=== PATIENT | male | born 1990 | race Hispanic/Latino ===

== ENCOUNTER 2021-01-30 18:14 | Emergency (ER) | payer SELFPAY ==
[2021-01-30] MEDS ORDERED: LIDOCAINE (2%) 20 MG/1 ML VIAL 20 ML MDV INFILTRATI STA (20:14)
[2021-01-30] MEDS ORDERED: SODIUM CHLORIDE 0.9% IRR 500 ML BOTTLE IR ONE (20:15)
[2021-01-30 20:17] VITALS: BP 151/96
--- NOTE | 2021-01-30 20:17 | Emergency Department Report ---
ED Upper Extremity Inj HPI - General Stated Complaint: CUT LT HAND POSSIBLY BROKEN Time Seen by Provider: 01/30/21 19:57 Source: patient - History of Present Illness Complaint: Injury to:: left, hand -: hour(s) (3) Other Extremity Injury: Hand: Left Other Injuries: none Handedness: right Place: work Severity scale (0 -10): 7 Improves With: immobilization Worsens With: immobilization, movement of extremity Context: crush (crushed by engine that fellonto hand), injury Associated Symptoms: denies: weakness, numbness, neck pain, nausea/vomiting, heard/felt popping sensat - Related Data Previous Rx's Medication Instructions Recorded Last Taken Type Acetaminophen/Codeine [Tylenol #3] 1 tab PO Q6H PRN #15 tab 01/30/21 Unknown Rx Chlorhexidine Gluconate [Hibiclens] 10 ml TP BID #240 liquid 01/30/21 Unknown Rx cephALEXin [Keflex] 500 mg PO Q6HR #40 capsule 01/30/21 Unknown Rx Allergies Allergy/AdvReac Type Severity Reaction Status Date / Time No Known Allergies Allergy Unverified 01/30/21 20:18 ED Review of Systems ROS: Stated complaint: CUT LT HAND POSSIBLY BROKEN Other details as noted in HPI Comment: All other systems reviewed and negative ED Past Medical Hx - Medications Home Medications: Home Medications Medication Instructions Recorded Confirmed Last Taken Type Acetaminophen/Codeine [Tylenol #3] 1 tab PO Q6H PRN #15 tab 01/30/21 Unknown Rx Chlorhexidine Gluconate [Hibiclens] 10 ml TP BID #240 liquid 01/30/21 Unknown Rx cephALEXin [Keflex] 500 mg PO Q6HR #40 capsule 01/30/21 Unknown Rx ED Physical Exam - General General appearance: alert, in no apparent distress - Head Head exam: Present: atraumatic, normocephalic - Eye Eye exam: Present: normal appearance, PERRL, EOMI Pupils: Present: normal accommodation - ENT ENT exam: Present: mucous membranes moist - Neck Neck exam: Present: normal inspection - Respiratory Respiratory exam: Present: normal lung sounds bilaterally. Absent: respiratory distress - Cardiovascular Cardiovascular Exam: Present: regular rate, normal rhythm. Absent: systolic murmur, diastolic murmur, rubs, gallop - GI/Abdominal GI/Abdominal exam: Present: soft, normal bowel sounds - Rectal Rectal exam: Present: deferred - Extremities Exam Extremities exam: Present: normal inspection, tenderness - Expanded Upper Extremity Exam Left Hand Wrist exam: Present: laceration Hand L/R Front: 1 - Positive: laceration. Negative: other, normal inspection, nail injury (#), foreign body, avulsion - Back Exam Back exam: Present: normal inspection - Neurological Exam Neurological exam: Present: alert, oriented X3 - Psychiatric Psychiatric exam: Present: normal affect, normal mood - Skin Skin exam: Present: warm, dry, intact, normal color. Absent: rash ED Course Vital Signs 01/30/21 20:13 Temperature 98.2 F Pulse Rate 89 Respiratory 15 Rate Blood Pressure 151/96 [Left] O2 Sat by Pulse 98 Oximetry - Laceration /Wound Repair Left Hand Wound Location: upper extremity, lower extremity Wound Length (cm): 6 Wound's Depth, Shape: linear, contused tissue Wound Explored: clean Irrigated w/ Saline (ccs): 100 Betadine Prep?: Yes Anesthesia: 1% Lidocaine Volume Anesthetic (ccs): 8 Wound Debrided: moderate Wound Repaired With: sutures Suture Size/Type: 4:0 Number of Sutures: 6 Sterile Dressing Applied?: Yes ED Medical Decision Making - Radiology Data Radiology results: report reviewed [address] [address] XRay Report Signed Patient: FRANK QUINONEZ MR#: [id number] : 1990 Acct:[id number] Age/Sex: 30 / M ADM Date: 01/30/21 Loc: ED Attending Dr: Ordering Physician: TIMOTHY العراقي Date of Service: 01/30/21 Procedure(s): XR hand 3+V LT Accession Number(s): [id number] cc: TIMOTHY العراقي Fluoro Time In Minutes: XR hand 3+V LT INDICATION / CLINICAL INFORMATION: crush injury. COMPARISON: None available. FINDINGS: BONES/JOINT(S): No acute fracture or subluxation. No significant degenerative changes. SOFT TISSUES: No significant abnormality. ADDITIONAL FINDINGS: None. Signer Name: Horace Ramos MD Signed: 01/30/2021 8:46 PM Workstation Name: [id number] Transcribed By: ERIK Dictated By: Horace Ramos MD Electronically Authenticated By: Horace Ramos MD Signed Date/Time: 01/30/212045 DD/ 45 TD/TT: Print Cancel Critical care attestation.: If time is entered above; I have spent that time in minutes in the direct care of this critically ill patient, excluding procedure time. ED Disposition Clinical Impression: Hand laceration, Hand crush injury Disposition: HOME / SELF CARE / HOMELESS Is pt being admited?: No Does the pt Need Aspirin: No Condition: Stable Instructions: Sutures, [place], or Adhesive Wound Closure, [id number], Crush Injury of the Hand, Laceration Care, Adult Additional Instructions: Patient follow-up with In 10 days to be evaluated for possible suture removal Prescriptions: Chlorhexidine Gluconate [Hibiclens] 10 ml TP BID #240 liquid cephALEXin [Keflex] 500 mg PO Q6HR #40 capsule Acetaminophen/Codeine [Tylenol #3] 1 tab PO Q6H PRN #15 tab PRN Reason: Pain Referrals: PRIMARY CARE,MD [Primary Care Provider] - 7-10 days (Follow your primary care provider and in [place] for suture removal if you do decide to stay here in [place] until this is healed you may return to the emergency department for removal)
--- NOTE | 2021-01-30 20:51 | XRay Report ---
XR hand 3+V LT INDICATION / CLINICAL INFORMATION: crush injury. COMPARISON: None available. FINDINGS: BONES/JOINT(S): No acute fracture or subluxation. No significant degenerative changes. SOFT TISSUES: No significant abnormality. ADDITIONAL FINDINGS: None. Signer Name: Horace Ramos MD Signed: 01/30/2021 8:46 PM Workstation Name: [id number]
== END 2021-01-30 23:27 | disposition home or self-care (01) ==
LOC: ED 18:14
DX: S61.412A Laceration without foreign body of left hand, initial encounter (principal); Z79.899 Other long term (current) drug therapy; W26.8XXA Contact with other sharp object(s), not elsewhere classified, initial encounter; Y93.89 Activity, other specified; Y92.89 Other specified places as the place of occurrence of the external cause; Y99.8 Other external cause status
CPT/HCPCS: 99283